=== PATIENT | male | born 1975 | race Caucasian/White ===

== ENCOUNTER 2022-09-12 04:18 | Emergency (ER) | payer SELFPAY ==
[2022-09-12 04:28] VITALS: BP 109/70; PULSE 98; RESP 20; TEMP 99.6; BMI 32.5
== END 2022-09-12 06:57 | disposition home or self-care (01) ==
LOC: JER 04:18
DX: J09.X2 Influenza due to identified novel influenza A virus with other respiratory manifestations (principal); R05.1 Acute cough; R11.0 Nausea; R51.9 Headache, unspecified
CPT/HCPCS: 0241U-QW; 99283-25

== ENCOUNTER 2023-05-05 17:55 | Emergency (ER) | payer OTHER ==
[2023-05-05 18:00] VITALS: BP 126/79; PULSE 86; RESP 18; TEMP 98.3; BMI 34.7
[2023-05-05 19:08] LABS: EPI CELLS 1 /uL (0-25.1); HYALINE CASTS 0 /uL (0-3.1); PH,URINE 5.5 (5.0-8.0); URINE APPEARANCE CLEAR; URINE BACTERIA 5756 /uL (0-1359); URINE BILIRUBIN NEGATIVE (NEGATIVE); URINE COLOR YELLOW; URINE GLUCOSE (UA) NEGATIVE (NEGATIVE); URINE KETONE NEGATIVE (NEGATIVE); URINE LEUK ESTERASE 2+ (NEGATIVE); URINE NITRITE POSITIVE (NEGATIVE); URINE PROTEIN NEGATIVE (NEGATIVE); URINE RBC 44 /uL (0-23.9); URINE UROBILINOGEN 0.2 mg/dL (0.2-1.0); URINE WBC 1153 /uL (0-25.8)
[2023-05-05] MEDS ORDERED: SULFAMETHOXAZOLE/TRIMETHOPRIM 800MG/160MG D.S. TABLET PO ONE (19:26)
[2023-05-05] MEDS ORDERED: SULFAMETHOXAZOLE/TRIMETHOPRIM 800MG/160MG D.S. TABLET ONE (19:28)
== END 2023-05-05 19:29 | disposition home or self-care (01) ==
LOC: JER 17:55 → JERFT 17:55
DX: R30.0 Dysuria (principal); N39.0 Urinary tract infection, site not specified
CPT/HCPCS: 81003; 87086; 87186; 99283-25